=== PATIENT | female | born 1965 | race Caucasian/White ===

== ENCOUNTER → 2018-09-26 | Outpatient (CLI) | payer OTHER | LOC: COL.RAD 09-20 14:15 | DX: S30.0XXA Contusion of lower back and pelvis, initial encounter (principal); W19.XXXA Unspecified fall, initial encounter | CPT/HCPCS: A9585; Q9967 ==

== ENCOUNTER 2018-10-07 15:22 | Outpatient (RCR) | payer OTHER | END 2018-10-17 | disposition home or self-care (01) | LOC: WSOH | DX: S30.0XXD Contusion of lower back and pelvis, subsequent encounter (principal); M25.551 Pain in right hip; W18.49XD Other slipping, tripping and stumbling without falling, subsequent encounter; Y93.F9 Activity, other caregiving; Y92.219 Unspecified school as the place of occurrence of the external cause; Y99.0 Civilian activity done for income or pay; Z79.899 Other long term (current) drug therapy ==